=== PATIENT | male | born 1960 | race Caucasian/White ===

== ENCOUNTER 2018-09-03 08:29 | Emergency (ER) | payer OTHER ==
[~2018-09-03] VITALS: Ht 175.3 cm; Wt 127.0 kg
[~2018-09-03 08:29] MED LIST: AUGMENTIN 875-1 EACH PO
[2018-09-03] MEDS ORDERED: NEURONTIN600 MG PO (08:44)
[2018-09-03] MEDS ORDERED: LASIX 40 MG TAB40 M2 PO (08:44)
[2018-09-03] MEDS ORDERED: LYRICA 50 MG50 MG PO (08:45)
[2018-09-03] MEDS ORDERED: LISINOPRIL5 MG PO (08:45)
[2018-09-03] MEDS ORDERED: KLOR-CON 1010 MEQ PO (08:46)
[2018-09-03] MEDS ORDERED: ALBUTEROL2.5 MG/0.1 INH (08:47)
[2018-09-03] MEDS ORDERED: BISACODYL SUPP10 MG RECTAL (08:47)
[2018-09-03] MEDS ORDERED: LOPERAMIDE 2 MG2 M1 PO (08:47)
[2018-09-03] MEDS ORDERED: NORCO 7.5-3251 EACH PO (08:48)
[2018-09-03] MEDS ORDERED: LEXAPRO 10 MG T10 M1 PO (08:49)
[2018-09-03 12:33] VITALS: BP 132/68
== END 2018-09-03 12:33 | disposition home or self-care (01) ==
LOC: ER 08:29
DX: S00.211A Abrasion of right eyelid and periocular area, initial encounter (principal); S50.812A Abrasion of left forearm, initial encounter; S60.511A Abrasion of right hand, initial encounter; W07.XXXA Fall from chair, initial encounter; Y93.89 Activity, other specified; Y92.89 Other specified places as the place of occurrence of the external cause; Y99.8 Other external cause status

== ENCOUNTER 2018-11-25 18:58 | Inpatient (IN) | payer OTHER ==
[~2018-11-25] VITALS: Ht 175.3 cm; Wt 137.5 kg
[~2018-11-25 18:58] MED LIST changes: +ALBUTEROL2.5 MG/0.1 INH; +BISACODYL SUPP10 MG RECTAL; +KLOR-CON 1010 MEQ PO; +LASIX 40 MG TAB40 M2 PO; +LEXAPRO 10 MG T10 M1 PO; +LISINOPRIL5 MG PO; +LOPERAMIDE 2 MG2 M1 PO; +LYRICA 50 MG50 MG PO; +NEURONTIN600 MG PO; +NORCO 7.5-3251 EACH PO
[2018-11-25 18:59] VITALS: BP 109/60
[2018-11-25 19:53] LABS: HEMATOCRIT 40.2 % (42.0-52.0); HEMOGLOBIN 13.8 gm/dL (14.0-18.0); MCH 31.1 pg (26.0-34.0); MCHC 34.4 g/dL (28.0-37.0); MCV 90.4 fL (80.0-100.0); PLATELET COUNT 252 thou/uL (150-400); RBC 4.45 mil/uL (4.50-6.00); RDW 14.8 % (10.5-14.5)
[2018-11-25 20:16] LABS: URINE BLOOD NEGATIVE (Negative); URINE CLARITY CLEAR; URINE COLOR YELLOW; URINE GLUCOSE-RANDOM* TRACE (Negative); URINE KETONES NEGATIVE (Negative); URINE LEUKOCYTES-REFLEX NEGATIVE (Negative); URINE NITRITE-REFLEX NEGATIVE (Negative); URINE PROTEIN (DIPSTICK) 2+ (Negative); URINE SPECIFIC GRAVITY >= 1.030 (1.005-1.035)
[2018-11-25 20:17] LABS: ICTOTEST (BILI CONFIRMATORY) Negative (Negative); URINE BILIRUBIN NEGATIVE (Negative)
[2018-11-25 20:25] LABS: ABSOLUTE NEUTROPHILS 26.5 thou/uL (1.4-8.2); ANISOCYTOSIS 1+; POLYCHROMASIA OCCASIONAL
[2018-11-25 20:26] LABS: LARGE PLATELETS OCCASIONAL
[2018-11-25 20:29] LABS: CASTS None Seen /LPF (None Seen); MUCUS 0-3 Light strn/LPF (None Seen); SQUAMOUS None Seen /LPF (0-3); URINE WBC-REFLEX 0-5 Rare /HPF (0-5)
[2018-11-25 20:30] LABS: BACTERIA-REFLEX None Seen /HPF (None Seen); CRYSTALS None Seen /LPF (None Seen); URINE RBC None Seen /HPF (0-2)
[2018-11-25 20:32] LABS: CALCIUM 8.5 mg/dL (8.5-10.1); CREATININE 0.9 mg/dL (0.7-1.3); POTASSIUM 3.5 mmol/L (3.5-5.1)
[2018-11-25 20:40] LABS: ALBUMIN 2.5 g/dL (3.4-5.0); DIRECT BILIRUBIN 0.2 mg/dL (<0.1-0.3); TOTAL BILIRUBIN 0.5 mg/dL (<0.1-1.0)
[2018-11-25] MEDS ORDERED: VITAMIN D1000 UNI1 PO (21:58)
[2018-11-25] MEDS ORDERED: FLOMAX0.4 MG PO (21:59)
[2018-11-25] MEDS ORDERED: TYLENOL325 MG PO (22:00)
[2018-11-25] MEDS ORDERED: MELATONIN5 M4 PO (22:02)
[2018-11-25] MEDS ORDERED: ONDANSETRON ODT4 MG PO (22:04)
[2018-11-25] MEDS ORDERED: MIRALAX17 GM PO (22:04)
[2018-11-25 22:07] VITALS: BP 103/59
[2018-11-25 22:27] VITALS: BP 103/59
[2018-11-26] VITALS: BP 104/61
--- NOTE | 2018-11-26 03:41 | NUR ---
pT NEW ADMIT FROM ED. ARRIVED ON UNIT ABOUT 2300. ALERT AND ORIENTED. BACK PAIN SEEM TO HAVE BEEN RESOLVED BY THIS TIME. WBC ELEVATED. PT START ON ABX. VITALS STABLE WITH SOFT PRESSURES. REPORTS BACK PAIN OF 2/10, THAT IS TOLERABLE ACCORDING TO PATIENT. PT HAS +3 EDEMA IN THE LE, WITH REDNESS ON THE LOWER LE UP TO THE THIGHS. REDNESS MAPPED BY THE IT QUALITY ASSURANCE ANALYST. OPEN SORES ON BOTH LE, AND LEFT BUTTOCK. SEE PICTURES UNDER GRAPHICS IN PT CHART. PT ALSO REPORTS SMOKING DAILY AND ALSO DOES REPORT THAT HE FEELS HE IS "NOT TREATED WELL" AT HIS FACILITY CAN CAN OFTEN SPEAK UP FOR HIMSELF. NO FURTHER CONCERNS AT THIS TIME. WILL CONTINUE WITH POC.
[2018-11-26 04:39] LABS: ALBUMIN 2.3 g/dL (3.4-5.0); CALCIUM 8.2 mg/dL (8.5-10.1); POTASSIUM 3.7 mmol/L (3.5-5.1); TOTAL BILIRUBIN 0.6 mg/dL (<0.1-1.0); TOTAL PROTEIN 6.8 g/dL (6.4-8.2)
[2018-11-26 04:58] LABS: HEMATOCRIT 41.2 % (42.0-52.0); HEMOGLOBIN 13.7 gm/dL (14.0-18.0); MCH 30.5 pg (26.0-34.0); MCHC 33.2 g/dL (28.0-37.0); MCV 91.9 fL (80.0-100.0); RBC 4.49 mil/uL (4.50-6.00); RDW 14.9 % (10.5-14.5); WBC 19.2 thou/uL (4.0-11.0)
[2018-11-26 06:00] VITALS: BP 139/81
[2018-11-26 08:17] VITALS: BP 133/80
[2018-11-26 10:45] LABS: URINE BILIRUBIN NEGATIVE (Negative); URINE BLOOD NEGATIVE (Negative); URINE CLARITY CLEAR; URINE COLOR YELLOW; URINE GLUCOSE-RANDOM* NEGATIVE (Negative); URINE KETONES NEGATIVE (Negative); URINE LEUKOCYTES NEGATIVE (Negative); URINE NITRITE NEGATIVE (Negative); URINE PROTEIN (DIPSTICK) TRACE (Negative); URINE SPECIFIC GRAVITY 1.015 (1.005-1.035)
[2018-11-26 15:45] VITALS: BP 128/70
--- NOTE | 2018-11-26 18:26 | NUR ---
VASCULAR ACCESS CONSULTED FOR PICC PLACEMENT, DISCUSSED BENEFITS AND RISKS WITH PT,VERBALIZED UNDERSTANDING. PT WAS PREPPED AND DRAPED FOR MAX BARRIER PRECAUTIONS. PT'SLAB,MEDS,HISTORY,ORDER AND CONSENT VERIFIED. SONY CEPHALIC WAS WIDELY PATENT WITH USG,1% LIDOCAINE GIVEN SQ. 4FR DL PICC UNABLE TO PASS SHOULDER AREA EVEN AFTER REPOSITIONING PT'S ARM TRIMMED TO 12CM INSERTED MIDLINE WITH BRISK BLOOD RETURN. LABELED MIDLINE. DISCUSSED WITH THO MARIE THAT ALL MEDS NEED TO BE COMPATABLE THROUGH LINE. RELEASED FOR IMMEDIATE USE PER PROTOCOL TO THO MARIE
--- NOTE | 2018-11-26 20:24 | NUR ---
PATIENT ALERT AND ORIENTED. PATIENT EXPERIENCING LOW BACK PAIN THIS MORNING AND WITH ONLY SOME RELEIF FROM MEDICATION. REPOSITIONING SEEMED TO HELP PATIENT DIDN'T ASK FOR ANY PAIN MEDS TODAY. WHEN PATIENT FLAT ON BACK DURING PICC LINE PLACEMENT, PATIENT EXPERIENCE LOW BACK SPASMS AND REQUESTED PAIN MEDS.
[2018-11-26 20:25] VITALS: BP 143/74
[2018-11-27 04:45] VITALS: BP 144/79
--- NOTE | 2018-11-27 05:14 | NUR ---
ASSUMED PT'S CARE AROUND 1920; PT. WITH EYES CLOSE; ST. WOULD LIKE TO MANTAIN LIGHTS OFF; REPORT GIVE IT AT THE BED SIDE; NO C/O PAIN; REFUSED REPOSSITION; EDUCATED ABOUT THE IMPORTANCE OF TURNING Q2H; ST. UNDERSTANDING; DURING ASSESSMENT NO C/O PAIN; TURN ON HIS R. SIDE; C/O LOWER BACK PAIN WHEN LYING FLAT ON HIS BACK; REQUESTED PRN PAIN MEDICATION AROUND 0200; PRN MEDICATION GIVEN; TURNED Q2H; ABLE TO REST THROUGH THE NIGHT WITH EYES CLOSE; ASSESSMENT CHARGED; FOLLOWING POC; WILL KEEP MONITORING; WILL PASS ON REPORT.
[2018-11-27 06:23] LABS: BASOPHILS 0.5 % (0.0-2.0); HEMATOCRIT 37.3 % (42.0-52.0); HEMOGLOBIN 12.7 gm/dL (14.0-18.0); MCH 30.7 pg (26.0-34.0); MCV 90.2 fL (80.0-100.0); MONOCYTES 11.5 % (1.0-8.0); PLATELET COUNT 266 thou/uL (150-400); RBC 4.14 mil/uL (4.50-6.00); RDW 14.6 % (10.5-14.5)
[2018-11-27 06:38] LABS: ALBUMIN 2.1 g/dL (3.4-5.0); CALCIUM 8.1 mg/dL (8.5-10.1); CREATININE 0.8 mg/dL (0.7-1.3); MAGNESIUM 1.8 mg/dL (1.8-2.4); POTASSIUM 3.5 mmol/L (3.5-5.1); TOTAL BILIRUBIN 0.4 mg/dL (<0.1-1.0); TOTAL PROTEIN 6.4 g/dL (6.4-8.2)
[2018-11-27 07:40] VITALS: BP 151/79
--- NOTE | 2018-11-27 10:38 | HC ---
[facility] [place] [address] CONSULTATION Name: MARILY GARCIA Adriana Room #: 206-P ADM IN M.R.#: [id number] Admission: 11/25/18 ������������������ Attend Phys: Italo Shea MD Discharge: ������������������ Date of : 60 Report #: [id number] THIS REPORT FOR: //name// CC: Italo Shea [facility] DATE OF SERVICE: 11/26/2018 WOUND CARE CONSULTATION REASON FOR CONSULTATION: Cellulitis of bilateral lower extremities in a patient with morbid obesity, leukocytosis and partial paraplegia. HISTORY OF PRESENT ILLNESS: The patient is a 58-year-old gentleman living in [facility] who has partial paraplegia. The patient is morbidly obese. He is nondiabetic. The patient states that he has had cellulitis of the lower extremities requiring hospitalization before. He was previously treated at [facility], but not here before. The patient was admitted to the Emergency Room with cellulitis of lower extremities and a chief complaint of lower back pain. White blood count in the Emergency Room was 27,000 and currently this morning 19,200. The patient's chief complaint is of lower back pain. Wound care was consulted due to redness of both legs with some open wounds. PAST MEDICAL HISTORY: Morbid obesity, partial paraplegia, debility and immobility. The patient is nondiabetic. Multiple sclerosis with the partial paraplegia. MEDICATIONS: Include Lasix, Neurontin, Zestril, Lyrica, potassium chloride, albuterol, Dulcolax, Imodium, Lexapro, Flomax, Zofran and MiraLax. The patient had been taking Augmentin outside the hospital. SOCIAL HISTORY: He is a current every day marijuana smoker. PHYSICAL EXAMINATION: GENERAL: Shows a chronically ill-appearing, morbidly obese 58-year-old gentleman who is alert and conversant. He is in moderate distress from pain. HEENT: Mucous membranes are moist. HEART: Shows regular rate and rhythm. ABDOMEN: Obese and soft. EXTREMITIES: Exam shows lymphedema of both lower extremities with some evidence of venous stasis of the legs. There is bright red cellulitis of both legs extending from the ankles to the groin with sparing of the groin crease itself. There is some extension of cellulitis to the right anterior abdominal wall. Examination of the lower extremities shows superficial open wounds of the left posterolateral lower leg measuring 3 x 4 cm, either a pressure ulcer or an [address] [address] CONSULTATION Name: MARILY GARCIA Room #: 206-P ADM IN [facility]#: [id number] Admission: 11/25/18 ������������������ Attend Phys: Italo Shea MD Discharge: ������������������ Date of : 60 Report #: [id number] abrasion. There is also a similar pressure ulcer or abrasion of the right posterolateral lower leg. Examination of the patient's buttocks shows a superficial 2 x 2.5 cm stage 2 pressure ulcer of the left buttock. IMPRESSION: 1. Morbid obesity. 2. Immobility and partial paraplegia from multiple sclerosis. 3. Lower back pain, possibly due to a renal or urinary tract infection. 4. Lymphedema of both lower extremities. 5. Cellulitis of right and left leg. 6. Stage 2 pressure ulcer, left buttock. 7. Superficial wounds of left and right lower legs due to pressure or abrasion. PLAN: 1. The patient will receive IV antibiotics including vancomycin. Silvadene and Xeroform to the open wounds of bilateral lower legs. 2. Barrier cream to the wound of the left buttock. 3. Offload with low air loss mattress. Wound care team will follow. ��������������������������������������������� <ELECTRONICALLY SIGNED> ���������������������������������������� By: Mark Ansari MD ��������������������������������������������� 11/27/18 1038 0756 21 Mark Ansari MD /nt
[2018-11-27 15:47] VITALS: BP 142/84
--- NOTE | 2018-11-27 17:44 | NUR ---
PATIENT RESTING, VSS, MAINTAINS O2 AT 98% ON RA, URLICH DD, BARRIER CREAM APPLIED TO LEFT BUTTOCK, SILVER SULFADIAZINE APPLIED TO APPROPRIATE WOUNDS, SEROSANGUINEOUS DRAINAGE ON BACK OF LOWER LEFT EXTREMITY. LOWER EXTREMITIES ELEVATED. NS INFUSING @ 100. PATIENT CANNOT TOLERATE LYING FLAT, EXTREME LOWER BACK PAIN. PRN FENTANYL GIVEN. WILL CONTINUE TO MONITOR.
--- NOTE | 2018-11-27 19:56 | NUR ---
PATIENT GIVEN PRINTED JOEL OF ISSUES WITH HEART MONITORS, PATIENT STATED UNDERSTANDING
[2018-11-27 20:00] VITALS: BP 164/78
[2018-11-28 02:51] LABS: ABSOLUTE NEUTROPHILS 8.2 thou/uL (1.4-8.2); BASOPHILS 0.8 % (0.0-2.0); EOSINOPHILS 1.8 % (0.0-3.0); HEMATOCRIT 32.9 % (42.0-52.0); HEMOGLOBIN 11.3 gm/dL (14.0-18.0); LYMPHOCYTES 14.8 % (24.0-44.0); MCH 30.8 pg (26.0-34.0); MCHC 34.4 g/dL (28.0-37.0); MCV 89.6 fL (80.0-100.0); MONOCYTES 10.8 % (1.0-8.0); PLATELET COUNT 265 thou/uL (150-400); POLYS 71.8 % (36.0-66.0); RBC 3.67 mil/uL (4.50-6.00); RDW 14.8 % (10.5-14.5); WBC 11.4 thou/uL (4.0-11.0)
[2018-11-28 03:04] LABS: CALCIUM 7.2 mg/dL (8.5-10.1); CREATININE 0.7 mg/dL (0.7-1.3); MAGNESIUM 1.6 mg/dL (1.8-2.4)
--- NOTE | 2018-11-28 03:11 | NUR ---
ASSUMED CARE 1899. VSS. ASSESSMENT CHARTED. PT C/O LOWER BACK PAIN ALL DAY, PARTIAL RELIEF WITH PRN PAIN MEDS, PT REPOSITIONED AND BOOSTED IN BED PT STATES ALMOST COMPLETE RELIEF WITH BEING BOOSTED, NO PUSH PAIN MEDS NEEDED SINCE. HAS NOT BEEN ABLE TO DRINK ELECTROLYTE PER EMAR...THIS NURSE KEEPS ENCOURAGING TO DRINK AND HE REFUSES AT TIMES. PLAN FOR LABS AND COLONOSCOPY TODAY. WILL CONTINUE TO MONITOR AND WITH POC.
[2018-11-28 04:00] VITALS: BP 130/80
[2018-11-28 07:30] VITALS: BP 148/77
[2018-11-28 11:15] LABS: MAGNESIUM 1.9 mg/dL (1.8-2.4)
--- NOTE | 2018-11-28 11:27 | NUR ---
Assess due to pt with cellulitis bilateral lower extremities, and abdomen and stage II pressure ulcer left buttocks indicated. Wound care has assessed. Pt with hx MS, paraplegia. Also pelvic/retroperitoneal lymphadenopathy and will need colonoscopy for further evaluation possibly tomorrow. On clear liquid bowel prep. Wt, extreme class III obesity, BMI of 44.7. Follow up again on 11/30 for further assessment
--- NOTE | 2018-11-28 12:19 | NUR ---
ORDERS FOR PT EVAL AND TREAT RECEIVED. Pt ADMITTED FOR PNA, CELLULTIS, AND SEPSIS. Pt IS FROM [facility]. Pt HAS BEEN W/C BOUND FOR 7 YEARS, STATING THAT HE USES EITHER TARA LIFT OR SIT TO STAND LIFT FOR TRANSFERS IN/OUT OF POWER W/C. Pt HAS MULTIPLE SCLEROSIS WITH PARTIAL PARAPLEGIA. Pt HAS NO SENSATION FROM KNEES DOWN BILATERALLY. HAS LIMITED USE OF L UE. Pt HAS ASSIST FOR ADLs AND USES LIFT FOR TRANSFERS AT FACILITY. NO ACUTE PT NEEDS IDENTIFIED. Pt STATED HE WOULD AGREE THAT HE DOES NOT NEED PT SERVICES. ACUTE PT TO SIGN OFF.
--- NOTE | 2018-11-28 13:20 | NUR ---
WOUND CONSULT; ASSESSMENT BILATERAL LE SHOWS S/S OF CHRONIC LYMPHEDEMA, NO WOUNDS. THE RIGHT BUTTOCK HAS A WOUND RE; FRICTION SHEARNING, SEROSANGUINOUS DRAINAGE. RECOMMENDATIONS; ZGUARD TO RIGHT BUTTOCK WOUND DAILY/PRN DISCUSSED WITH STAFF
--- NOTE | 2018-11-28 16:50 | NUR ---
ASSUMED CARE OF PT AT SHIFT CHANGE. ASSESSMENTS CHARTED. MEDS GIVEN PER SEP. PT ALERT AND ORIENTED, VSS, C/O PAIN IN BACK, MANAGED WITH REPOSITIONING AND PO PAIN MEDS. PER NOC NURSE, PT REFUSED GOLYTELY BOWEL PREP. GI PHYSICIAN NOTIFIED, ORDERS RECEIVED FOR CLEAR LIQUID DIET AND FOR SCHEDULED COLONOSCOPY TO BE PERFORMED TOMORROW. MIRALAX BOWEL PREP ORDERED, PT TOLERATING BETTER. PT CONTINUES TO BE INCONTINENT OF BOWEL. PT HAS HAD 2 LOOSE STOOLS THIS SHIFT. PT DENIES CONCERNS AT THIS TIME. CONTINUING TO MONITOR AND FOLLOW POC.
--- NOTE | 2018-11-28 17:22 | NUR ---
met with patient he is A/Ox4. Reviewed role of casemgt. Patient admits with pna/cellulitis. Patient admits from [facility] plan return at [place]. Plan to update [facility]. Offered to call dtr but patient denies need to call her.
[2018-11-28 21:09] VITALS: BP 135/78
[2018-11-29 02:54] LABS: HEMATOCRIT 36.3 % (42.0-52.0); HEMOGLOBIN 12.3 gm/dL (14.0-18.0); MCH 30.2 pg (26.0-34.0); MCV 88.9 fL (80.0-100.0); RBC 4.08 mil/uL (4.50-6.00); RDW 14.6 % (10.5-14.5)
[2018-11-29 03:10] LABS: CREATININE 0.8 mg/dL (0.7-1.3); MAGNESIUM 1.9 mg/dL (1.8-2.4); POTASSIUM 3.3 mmol/L (3.5-5.1)
--- NOTE | 2018-11-29 03:43 | NUR ---
ASSUMED CARE 1899. VSS. ASSESSMENT CHARTED. PT C/O LOWER BACK PAIN CONTROLED WITH PRN PAIN MEDS PER EMAR, AND REPOSITIONING IN BED. ULRICH IN PLACE, INCONTINET BM LOOSE STOOL. Q2 TURNS. PT TOLERATED AND FINISHED MIRALAX BOWEL PREP. NPO AT MIDNIGHT FOR COLONOSCOPY THIS AM. OFF ISO, CDIF NEG. WILL CONTINUE TO MONITOR AND WITH POC.
[2018-11-29 07:45] VITALS: BP 143/80
--- NOTE | 2018-11-29 14:27 | NUR ---
PT RESIDES AT [facility] FAXED CLINICAL UPDATE TO FACILITY SPOKE WITH AMY GARCIA RECEIVED UPDATE. DCP TO FOLLOW.
--- NOTE | 2018-11-29 15:21 | NUR ---
SPOKE WITH PHARMACY TO INFORM THAT PT MISSED AM DOSE OF VANCOMYCIN. INSTRUCTED NO NEED FOR VANCOTROGH AND GIVE EVENING DOSE.
--- NOTE | 2018-11-29 16:13 | NUR ---
PT RETURNED TO ROOM THIS AFTERNOON AND WILL BE PLACED ON A REGULAR DIET. BED LOW AND LOCKED, SIDE RAILS UPX3, CALL LIGHT IN REACH. GAVE AM MEDS. WILL CONTINUE TO ASSESS.
[2018-11-29 19:05] VITALS: BP 147/85
[2018-11-30 04:45] VITALS: BP 153/88
[2018-11-30 08:49] VITALS: BP 154/72
[2018-11-30] MEDS ORDERED: AUGMENTIN 875-1 EACH PO (10:40)
--- NOTE | 2018-11-30 13:48 | NUR ---
PT DISCHARGING TODAY BACK TO [facility] FAXED DC ORDERS/SUMMARY TO FACILITY AND SPOKE WITH AMY IN ADM SHE RECEIVED DC ORDERS AND ARRANGED TRANSPORTATION FOR BARIATRIC STRETCHER VAN FOR 1600 TODAY. PT TO NOTIFY FAMILY OF DC AND TIME OF TRANSPORT. UNIT NOTIFIED AND CHART COPY PER US. RN TO CALL REPORT TO [phone].
--- NOTE | 2018-11-30 16:06 | PATH ---
[facility] [place] [address] PATHOLOGY RPT PROCEDURE Name: CHONG GARCIA Room #: 206-P ADM IN M.R.#: [id number] ������������������ Admission: 11/25/18 ������������������ Date of : 60 Discharge: Report #: [id number] Path Case #: [id number] [facility] Accession Number: [id number] . 01 Material submitted: . PART A: colon - POLYP AT DISTAL ASCENDING COLON. Modifiers: distal, ascending PART B: hepatic flexure - BX OF POLYP AT HEPATIC FLEXURE PART C: colon - RANDOM COLON BX R/O COLITIS PART D: colon - POLYP AT 40CM PART E: rectum - POLYP AT RECTUM X3 AND BX OF POLYP AT RECTUM X1 . 01 Clinical history: . Pre-OP DX: Please refer to requisition for information Post-OP DX: Colon polyps . 02 Diagnosis: A. Polyp, at distal ascending colon, endoscopic biopsy: - Tubular adenoma. - Negative for high-grade dysplasia. . B. Polyp, at hepatic flexure, endoscopic biopsy: - Tubular adenoma. - Negative for high-grade dysplasia. . C. Large intestinal mucosa, random colon R/O colitis, endoscopic biopsy: - Pigmented macrophages within lamina propria, compatible with melanosis coli. - Negative for acute cryptitis. - Negative for microscopic colitis. - Negative for dysplasia or malignancy. . D. Polyp, at 40 cm, endoscopic biopsy: - Hyperplastic polyp. - Negative for dysplasia. . E. Polyp x4, at rectum, endoscopic biopsy: - All fragments sampled showing hyperplastic polyps. - Negative for dysplasia. (IUV:omari; 11/30/2018) QMS/11/30/2018 . 02 Electronically signed: . Nicole Mendoza MD, Pathologist NPI- [id number] . 01 Gross description: . [address] [address] PATHOLOGY RPT PROCEDURE Name: CHONG GARCIA Room #: 206-P [facility] IN .R.#: [id number] ������������������ Admission: 11/25/18 ������������������ Date of : 60 Discharge: Report #: [id number] Path Case #: [id number] A. Received in formalin labeled "Chong Garcia, polyp at distal ascending colon," is a single segment of rdz soft tissue measuring 1.4 cm in maximum dimension. The specimen is entirely submitted in cassette A1. . B. Received in formalin labeled "Chong Garcia, BX of polyp at hepatic flexure," are 2 segments of rdz soft tissue measuring 0.8 x 0.2 x 0.2 cm in aggregate dimensions and measuring 0.4 cm each in maximum dimension. The specimen is submitted entirely in cassette B1. . C. Received in formalin labeled "Chong Garcia, random colon BX, rule out colitis," are 5 segments of rdz soft tissue measuring 1.3 x 1.1 x 0.2 cm in aggregate dimensions and ranging from 0.3 to 0.4 cm in maximum dimension. The specimen is submitted entirely in cassette C1. . D. Received in formalin labeled "Chong Garcia, polyp at 40 cm," is a single segment of rdz soft tissue measuring 0.7 cm in maximum dimension. The specimen is entirely submitted in cassette D1. . E. Received in formalin labeled "Chong Garcia, polyp at rectum x4," are 5 segments of rdz soft tissue measuring 1.7 x 1.4 x 0.5 cm in aggregate dimensions and ranging from 0.3 to 0.7 cm in maximum dimension. The specimen is submitted entirely in E1. (TSD; 11/29/2018) TOB/TOB . 02 Pathologist provided ICD-10: D12.2, D12.3, K63.5, K62.1 . 02 CPT . 466112, 910801, 644990, [id number], 116764 Specimen Comment: A courtesy copy of this report has been sent to Specimen Comment: [phone], , . Specimen Comment: Report sent to ,DR LAWSON / DR DONNELLY Performed at: [address], [place], [place] [id number] MD Bryce Blackwood MD Phone: [phone] Performed at: [address], [place], [place] [id number] MD Nicole Mendoza MD Phone: [phone]
--- NOTE | 2018-11-30 17:48 | NUR ---
ASSESSMENT CHARTED, MEDS PER MAR - NO CO'S OF PAIN OR NAUSEA. GREG DIET AND FLUIDS. PICTURES TAKEN OF WOUNDS AND PLACED ON CHART - CREAM APPLIED ORDERED. PT BACK TO FACILTIY THIS AFTERNOON - ATTEMPTED TO CALL REPORT AT 1716 PHONE RANG FOR 5 MINUTES WITH NO ASNWER- ATEMPTED AGAIN AT 1746 WITH THE SAME SISTUATION RANG FOR 5 MINUTES NO ANSWER. PT LEFT UNIT VIA STRETCHER VAN - NO CO'S AT TIME OF D/C. MONITOR AND MIDLINIE REMOVED PRIOR TO D/C.
--- NOTE | 2018-12-01 11:52 | P ---
[facility] [place] [address] PROCEDURE REPORT Name: MARILY GARCIA Adriana Room #: 206-P [facility] IN M.R.#: [id number] Admission: 11/25/18 ������������������ Attend Phys: Rashid Lares MD Discharge: 11/30/18 ������������������ Date of : 60 Report #: [id number] THIS REPORT FOR: //name// CC: Rashid Jones DATE OF SERVICE: 11/29/2018 OUTPATIENT COLONOSCOPY BRIEF HISTORY: The patient is a 58-year-old male who was admitted to [facility] and CT scan reveals evidence of pelvic and abdominal lymphadenopathy. Etiology is not entirely clear. He also has recently had problems with diarrhea. PREOPERATIVE DIAGNOSIS: Abnormal CT and diarrhea. POSTOPERATIVE DIAGNOSIS: Multiple colon polyps. MEDICATIONS: Deep sedation with propofol per anesthesia. SPECIMENS: 1. Polyp, distal ascending colon. 2. Polyp, hepatic flexure. 3. Random biopsies, rule out colitis. 4. Polyp at 40 cm. 5. Polyps x 4, rectum. ESTIMATED BLOOD LOSS: 3 mL. PROCEDURE: Colonoscopy to cecum and terminal ileum with biopsy. FINDINGS: Prior to propofol sedation, procedure of colonoscopy was discussed with the patient as well as potential risks and its complications. He indicates he understands and desires to proceed. DESCRIPTION OF PROCEDURE: With the patient in left lateral decubitus position, directly somatic decubitus position, digital examination was completed, which revealed no abnormalities. Subsequently, the Olympus video colonoscope was introduced in the rectum, advanced under direct vision to the cecum. Done with minimal difficulty. Cecum was identified by the ileocecal valve and the appendiceal orifice. I was able to advance the scope into the distal terminal ileum and visualize about 10-12 cm of distal terminal ileum, which was normal. There was no evidence of inflammatory disease. At that point, the scope was slowly withdrawn and careful circumferential views were obtained. Upon slow [facility] [address] [place] [address] PROCEDURE REPORT Name: MARILY GARCIA Room #: 206-P DIS IN M.R.#: [id number] Admission: 11/25/18 ������������������ Attend Phys: Rashid Lares MD Discharge: 11/30/18 ������������������ Date of : 60 Report #: [id number] withdrawal of the scope, the mucosa was inspected. The mucosa was intact throughout the entire colon. There was no evidence of inflammatory disease. Also, there were limitations of prep with some liquidy residual material scattered about the colon. We cleaned up as well as possible, reasonably good views were obtained. However, due to some retained material, very small polyps could have been overlooked; however, again there was no evidence of inflammatory disease. There is no evidence of significant neoplastic process. However, he was noted to have multiple small polyps. In the distal ascending colon, a 4-5 mm polyp was seen and removed by cold snare polypectomy. At the hepatic flexure, diminutive polyp was removed with biopsy forceps. We also obtained random biopsies throughout the colon to evaluate for microscopic inflammatory change in view of his diarrhea. At 40 cm, a 4-5 mm sessile polyp was seen and removed by cold snare polypectomy. In the rectum, a total of 4 polyps were removed, 1 diminutive polyps was removed with forceps, the other were small sessile polyps in the range of 4-6 mm and removed by cold snare polypectomy. Upon retroflexion, no additional lesions were seen. Scope was withdrawn. The patient tolerated the procedure well. DISPOSITION: The patient with abnormal CT and diarrhea. An obvious process to explain the adenopathy on CT was not identified. We will follow up on pathology of the polyps and mucosal biopsies. I would suggest a followup colonoscopy in 3 years due to the large number of polyps. ��������������������������������������������� <ELECTRONICALLY SIGNED> ���������������������������������������� By: Handy Patiño MD ��������������������������������������������� 12/01/18 1152 [id number] Handy Patiño MD /nt
== END 2018-11-30 17:17 | DRG 871 ==
LOC: ER 18:58 → 2N 21:15 → EROBS 21:15 → 2N 22:32
PROVIDERS: Nurse Practitioner; Nurse Practitioner Acute Care; ADMIT Internal Medicine
PROC: 0DBE8ZX Excision of Large Intestine, Via Natural or Artificial Opening Endoscopic, Diagnostic (ICD-10-PCS; principal; 2018-11-29)
PROC: 0DBP8ZZ Excision of Rectum, Via Natural or Artificial Opening Endoscopic (ICD-10-PCS; principal; 2018-11-29)
PROC: 0DBK8ZZ Excision of Ascending Colon, Via Natural or Artificial Opening Endoscopic (ICD-10-PCS; principal; 2018-11-29)
PROC: 0DBL8ZZ Excision of Transverse Colon, Via Natural or Artificial Opening Endoscopic (ICD-10-PCS; principal; 2018-11-29)
DX: A41.9 Sepsis, unspecified organism (principal); J18.9 Pneumonia, unspecified organism; E43 Unspecified severe protein-calorie malnutrition; Z68.41 Body mass index [BMI] 40.0-44.9, adult; G82.20 Paraplegia, unspecified; L03.116 Cellulitis of left lower limb; L03.115 Cellulitis of right lower limb; E55.9 Vitamin D deficiency, unspecified; F17.210 Nicotine dependence, cigarettes, uncomplicated; E66.01 Morbid (severe) obesity due to excess calories; G35 Multiple sclerosis; I89.0 Lymphedema, not elsewhere classified; L89.322 Pressure ulcer of left buttock, stage 2; F32.9 Major depressive disorder, single episode, unspecified; R19.7 Diarrhea, unspecified; K80.20 Calculus of gallbladder without cholecystitis without obstruction; L89.312 Pressure ulcer of right buttock, stage 2; K62.1 Rectal polyp
CPT/HCPCS: 10081; 27000; 62110; 62900; 70005

== ENCOUNTER 2021-07-01 20:08 | Observation (INO) | payer OTHER ==
[~2021-07-01] VITALS: Ht 175.3 cm; Wt 126.1 kg
[~2021-07-01 20:08] MED LIST changes: +FLOMAX0.4 MG PO; +MELATONIN5 M4 PO; +MIRALAX17 GM PO; +ONDANSETRON ODT4 MG PO; +TYLENOL325 MG PO; +VITAMIN D1000 UNI1 PO
[2021-07-01 22:03] VITALS: BP 131/85
[2021-07-01 23:32] LABS: HEMOGLOBIN 16.5 gm/dL (14.0-18.0)
--- NOTE | 2021-07-02 00:46 | NUR ---
PT IS A DIRECT ADMIT FROM [facility], ARRIVED AT 2115 HRS. PT IS HERE WITH C/O ABDOMINAL PAIN WELL N/V/. ANTIEMETICS AND PAIN MEDS GIVEN, IVF STARTED.HE IS NPO.NO COFFEE GROUND EMESIS SINCE ARRIVING. HAS A CHRONIC ULRICH WITH DARK YELLOW U/O NOTED. LYMPHEDEMA WRAPS TO BLE--DATED 06/30/21. AFEBRILE. SR/ST ON TELEMETRY.HAS WOUND IN BILATERAL GLUTEAL FOLDS. MANTAINED ON 08/14L/NC TO KEEP SATS ABOVE 93%-ENC TO USE I/S,BLE PARAPHLEGIA,LEFT HAND IS ALSO FLACCID.CALL LIGHT WITHIN REACH.
[2021-07-02 04:45] VITALS: BP 124/86
[2021-07-02 06:02] LABS: HEMATOCRIT 50.1 % (42.0-52.0); HEMOGLOBIN 16.6 gm/dL (14.0-18.0); MCH 30.7 pg (26.0-34.0); MCHC 33.1 g/dL (28.0-37.0); MCV 92.6 fL (80.0-100.0); RBC 5.41 mil/uL (4.50-6.00); RDW 14.2 % (10.5-14.5); WBC 11.4 thou/uL (4.0-11.0)
[2021-07-02 06:32] LABS: CALCIUM 9.2 mg/dL (8.5-10.1); CREATININE 1.1 mg/dL (0.7-1.3); POTASSIUM 3.3 mmol/L (3.5-5.1)
[2021-07-02] MEDS ORDERED: ARTIFICIAL TEAR1510 EA. EYE (07:10)
[2021-07-02 07:14] VITALS: BP 142/51
[2021-07-02] MEDS ORDERED: VITAMIN C250 MG PO (07:19)
[2021-07-02] MEDS ORDERED: BACLOFEN5 MG PO (07:20)
[2021-07-02] MEDS ORDERED: LANTUS SUBQ (07:21)
[2021-07-02] MEDS ORDERED: KEFLEX250 MG PO (07:23)
[2021-07-02] MEDS ORDERED: COUGH SYRU100 MG/5 M PO (07:26)
[2021-07-02] MEDS ORDERED: SUPER THERAVIT1 EACH PO (07:29)
[2021-07-02] MEDS ORDERED: NOVOLOG FL100 UNIT/M SUBQ (07:31)
[2021-07-02] MEDS ORDERED: TORSEMIDE20 MG PO (07:32)
[2021-07-02] MEDS ORDERED: OXYBUTYNIN 5 MG5 M2 PO (07:32)
[2021-07-02] MEDS ORDERED: ZINC50 M3 PO (07:34)
[2021-07-02] MEDS ORDERED: ROXICODONE5 MG PO (07:35)
[2021-07-02] MEDS ORDERED: PHENAZOPYRIDIN200 MG PO (07:36)
--- NOTE | 2021-07-02 09:24 | NUR ---
WOUND CARE CONSULT; (THIS PATIENT IS UNABLE TO TURN HIMSELF) THE PATIENT HAS BILATERAL ISCHIAL WOUNDS WITH SCARING INDICATING HE HAS HAD THEM FOR A LONG TIME. THE PATIENT HAS M/S AND IS UNABLE TO TURNING HIMSELF. THE PATIENT STATES HE IS UP IN HIS WHEELCHAIR AT HIS CUSTODIAL ALL DAY. I EXPLAINED THE ETIOLOGY OF THESE TYPE WOUNDS SITTING INJURIES. RIGHT NOW THEY ARE ONLY A STAGE 2 BILATERALLY. NO S/S OF INFECTION. THE PATIENT ACKNOWLEGES UNDERSTANDING. RECOMMENDAIONS;. -LOW AIR LOSS PUMP. -Q2H TURNING -APPLY BARRIER CREAM DISCUSSED WITH RN.
--- NOTE | 2021-07-02 10:50 | NUR ---
60-year-old male who is a direct admission from [facility]. He from [facility]. transferred to [facility] as there is no GI service at [facility]. He has a past medical history of multiple sclerosis, hypertension, constipation, diabetes type 2 UTI, COVID-19 infection, chronic Ovalle catheter, partial paraplegia, depression, bilateral lower extremity lymphedema, peripheral neuropathy, urinary retention. Cm visited with him at bedside, he can make his needs know. He lives in LTC at the [facility]. Uses a power chair for mobility and transfers with a Fabienne life, has a ovalle Cath for retention. Spoke with [facility] # [phone], fax # [phone]. Going to Gi procedure this afternoon.
[2021-07-02 11:23] VITALS: BP 125/78
--- NOTE | 2021-07-02 12:03 | NUR ---
ASSUMED PT CARE THIS AM. PT IS ALERT & ORIENTED X4. PT HAS IV SITE ON R WRIST RUNNING NS @75ML/HR. PT HAS TELE MONITOR ON. PT IS ON 3L NC 02. PT HAS ULRICH CATH IN PLACE. PT HAS WOUNDS ON BUTTOCKS. PT IS ACCHECK ACHS. PT HAS BEEN NPO AND WILL HAVE EGD TODAY. WILL CONTINUE TO MONITOR PT. FOLLOW POC.
[2021-07-02 14:30] VITALS: BP 153/94
[2021-07-02 16:46] VITALS: BP 154/85
[2021-07-02 19:19] VITALS: BP 122/87
[2021-07-03] VITALS (8 sets, daily range): BP systolic 116–171; BP diastolic 65–91
--- NOTE | 2021-07-03 03:01 | NUR ---
PROGRESS PT C/O NAUSEA AND VOMITING AT SHIFT CHANGE SMALL AMOUNT OF CLEAR WATERY EMESIS NOTED. 5 MG COMPAZINE GIVEN IVP WITH EFFECT. BACLOFEN GIVEN FROM BACK PAIN WITH EFFECT. REPOSITIONED THROUGHOUT NIGHT LEG WRAPS IN PLACE. IV TO RH SL FLUSHES WITHOUT DIFFICULTY. CLEAR LIQUID DIET RESUMED TOLERATING IN SMALL AMOUNTS. VSS O2 AT 3 LITERS VIA NC. CONTINUE POC.
--- NOTE | 2021-07-03 09:49 | NUR ---
ASSUMED PT CARE AT 0700 THIS MORNING. PT IS A/OX4 WITH R SIDED WEAKNESS DUE TO MS. PT IS ON NPO BUT NO NOTES STATED IF THERE IS A PROCEDURE OR DR. ORDERS. ASSESSMENTS NOTED IN CHART AND OTHERWISE UNREMARKABLE. PAGING DR. JOHN TO SEE IF PT CAN BE ADVANCED TO A DIET. FALL PRECAUTIONS IN PLACE. CALL LIGHT AND OTHER NEEDS ARE IN REACH. MEDS AND TX GIVEN NEEDED AND SCHEDULED. WILL MONITOR AND NOTE ANY CHANGES.
--- NOTE | 2021-07-03 09:57 | 2DMMODE ---
[facility] [place] [address] 2 D/M-MODE ECHOCARDIOGRAM Name: MARILY GARCIA Adriana Room #: 433-I [facility]..#: [id number] Admission: 07/01/21 Attend Phys: Tori Moulton MD Discharge: Date of : 60 Report #: [id number] THIS REPORT FOR: cc: Yohan Jones MD, Shyam MD Santiago, Patrick MD [facility] ~ APPROVED REPORT Study performed: 07/03/2021 08:37:48 EXAM: Comprehensive 2D, Doppler, and color-flow Echocardiogram Patient Location: Bedside Room #: 433 Status: routine BSA: 2.38 HR: 93 bpm BP: 142/91 mmHg Rhythm: NSR Other Information Study Quality: Adequate Indications Diabetes Hypertension/HDD Volumes Left Atrial Volume (Systole) Single Plane 4CH: 25.85 mL Single Plane 2CH: 31.99 mL LA ESV Index: 13.00 mL/m2 Aortic Valve AoV Peak Willie.: 1.15 m/s AO Peak Gr.: 5.25 mmHg LVOT Max P.19 mmHg LVOT Max V: 0.89 m/s Pulmonary Valve PV Peak Willie.: 1.21 m/s PV Peak Gr.: 5.82 mmHg Left Ventricle The left ventricle is normal size. There is normal LV segmental wall motion. There is normal left ventricular wall thickness. Left ventricular systolic function is normal. The left ventricular [facility] [address] [place] [address] 2 D/M-MODE ECHOCARDIOGRAM Name: MARILY GARCIA Room #: 433-I ADM IN M.R.#: [id number] Admission: 07/01/21 Attend Phys: Ariadna Miller Discharge: Date of : 60 Report #: [id number] ejection fraction is within the normal range. LVEF is 55-60%. Grade I - abnormal relaxation pattern. Right Ventricle The right ventricle is normal size. The right ventricular systolic function is normal. Atria The left atrium size is normal. The right atrium size is normal. Aortic Valve The aortic valve is normal in structure. No aortic regurgitation is present. There is no aortic valvular stenosis. Mitral Valve The mitral valve is normal in structure. There is no mitral valve regurgitation noted. No evidence of mitral valve stenosis. Tricuspid Valve The tricuspid valve is normal in structure. There is no tricuspid valve regurgitation noted. Pulmonic Valve The pulmonary valve is normal in structure. There is no pulmonic valvular regurgitation. Great Vessels The aortic root is normal in size. The inferior vena cava is not well visualized. Pericardium There is no pericardial effusion. <Conclusion> Difficult study Normal ventricle size/wall thickness Ejection fraction 50-55% grade 1 diastolic dysfunction Normal right ventricle size/function Normal aortic/mitral valve structure and function No tricuspid valve insufficiency [facility] [place] [address] 2 D/M-MODE ECHOCARDIOGRAM Name: MARILY GARCIA Room #: 433-I ADM IN M.R.#: [id number] Admission: 07/01/21 Attend Phys: Ariadna Miller Discharge: Date of : 60 Report #: [id number] No pericardial effusion Normal aortic root size <ELECTRONICALLY SIGNED> By: Jeffrey Alex MD, FACC 07/03/2156 5 5 Jeffrey Alex MD, FACC /INF
[2021-07-03 10:42] LABS: POTASSIUM 3.2 mmol/L (3.5-5.1)
--- NOTE | 2021-07-03 11:12 | NUR ---
Nutrition: Consulted r/t wounds. Pt admitted with N/V, gastric pain. Noted with improvement. GI did find Grade C esophegitis and took bx, pathology pending. Noted with Stg II to bilat isheal/buttocks r/t limited mobility d/t dx MS, with new tx orders. No weight changes reported recently. Intakes on clear liquids good, diet to advance as tolerated. Antiemetics in place with good results as pt reports hunger and wants to eat. Hx BLE lymphedema with some resolced opena areas noted. Will start Med BID for wound healing. Low nutrition risk with interventions intiated.
--- NOTE | 2021-07-03 14:34 | NUR ---
dc ready back to [facility] today ltc.
--- NOTE | 2021-07-03 17:32 | NUR ---
Patient to dc to [facility]. Faxed orders alerted of dc and timeframe. Transport via [employer] for [phone]. Notified facility. Chart copied. SP with patient and offered to call dtr but patient reports no need.
[2021-07-04] VITALS: BP 134/67
--- NOTE | 2021-07-04 04:12 | NUR ---
RECEIVED CARE OF THIS PATIENT AT 1900. PATIENT ALERT AND ORIENTED X4. REMAINS ON BED TEST BECAUSE HE HAS L SIDED PARALISES AND R LEG. HAS PARTIAL USE OF R UPPER EXT. DENIES PAIN. ULRICH PATENT. SLEPT MOST OF NIGHT.
[2021-07-04 06:50] VITALS: BP 122/63
[2021-07-04 07:48] VITALS: BP 110/65
--- NOTE | 2021-07-04 10:31 | NUR ---
RE-ASSUMED CARE OF PT AT 0700 THIS MONRING. PT HAD NO CHANGES SINCE HANDOFF LAST NIGHT. PT IS TO BE TRANSPORTED TO [facility] THIS MORNING. P/U IS TO BE BETWEEN 10A AND 11A. ASSESSMENTS NOTED IN CHART AND OTHERWISE UNREMARKABLE. CALL LIGHT IS IN REACH AND FALL PRECAUTIONS ARE IN PLACE. MEDS AND TX GIVEN NEEDED AND SCHEDULED. WILL CONTINUE TO MONITOR AND NOTE ANY CHANGES. PT WAS P/U AT 1000 THIS MORNING. PT LEFT THE UNIT AT 1020. CALLED TO GIVE PT REPORT TO NURSE AT 1030.
== END 2021-07-04 11:00 ==
LOC: 4W 20:08 → 4S 21:15
PROVIDERS: Nurse Practitioner Family; ADMIT Hospitalist; ATTEND Hospitalist
DX: K20.91 Esophagitis, unspecified with bleeding (principal); Z20.822 Contact with and (suspected) exposure to COVID-19; K92.0 Hematemesis; R19.7 Diarrhea, unspecified; J96.01 Acute respiratory failure with hypoxia; I11.0 Hypertensive heart disease with heart failure; I50.30 Unspecified diastolic (congestive) heart failure; E78.5 Hyperlipidemia, unspecified; E87.0 Hyperosmolality and hypernatremia; E87.6 Hypokalemia; D72.829 Elevated white blood cell count, unspecified; G35 Multiple sclerosis; R33.9 Retention of urine, unspecified; E66.01 Morbid (severe) obesity due to excess calories; F17.200 Nicotine dependence, unspecified, uncomplicated; Z68.41 Body mass index [BMI] 40.0-44.9, adult
CPT/HCPCS: 62110; 62900; 70005